=== PATIENT | female | born 1995 | race African-American/Black ===

== ENCOUNTER 2016-05-01 12:22 | Emergency (ER) | payer MEDICAID ==
[~2016-05-01] VITALS: Ht 175.3 cm; Wt 88.6 kg
--- NOTE | 2016-05-01 13:15 | PD ---
HPI Chief Complaint: Back/ Neck Pain or Injury Time Seen by Provider: 13:15 Travel History International Travel<30 days: No Contact w/Intl Traveler<30days: No Traveled to known affect area: No History of Present Illness HPI 20-year-old female presents to the emergency department for evaluation of low back pain and lower abdominal pain for 2-3 days. Patient describes it as intermittent sharp pain. Denies any aggravating or alleviating factors. States that she's had similar pain when she is on her menstrual cycle but that this pain little different. States her last menstrual cycle was 4 days ago, denies . States she has had vaginal discharge for the past 2-3 days as well. Denies any fever, chills, nausea, vomiting, diarrhea, constipation, burning with urination, painful urination. Denies any prior abdominal surgeries. The patient admits to being sexually active but reports that she uses protection. No other complaints. PFSH Past Medical History Anemia: Yes Diminished Hearing: No ?: Not LMP: 04/27/2016 Social History Alcohol Use: No Tobacco Use: Yes (OCC) Substance Use: No Allergies-Medications (Allergen,Severity, Reaction): Coded Allergies: No Known Allergies (Unverified , 05/01/16) Reported Meds & Prescriptions Reported Meds & Active Scripts Active No Active Prescriptions or Reported Medications Review of Systems Except as stated in HPI: all other systems reviewed are Neg Physical Exam Narrative GENERAL: Well-nourished and well-developed pleasant female patient in no acute distress who is nontoxic appearing. SKIN: Warm and dry. HEAD: Normocephalic and atraumatic. EYES: No injection, drainage, or hyphema noted. PERRLA. EOMI. ENT: No nasal drainage noted. Oropharynx is clear. NECK: Supple and the trachea is midline. CARDIOVASCULAR: Regular rate and rhythm. RESPIRATORY: Breath sounds are equal bilaterally with no accessory muscle use, wheezing, rhonchi, or crackles. GASTROINTESTINAL: Mild tenderness to palpation of pelvic region. Negative McBurney's point. Negative Martin sign. Abdomen is soft and nondistended. No rebound tenderness or guarding. GENITOURINARY: Normal external genitalia without lesions or erythema. Vaginal vault with thick brown discharge. Cervical os was closed without drainage. Mild cervical motion tenderness. Uterus nontender and nonenlarged. Bilateral adnexa nontender without masses. Performed in the presence of Skylar PAREDES. MUSCULOSKELETAL: No obvious deformities, swelling, cyanosis, or ecchymosis is present throughout the upper and lower extremities. Patient has full range of motion without any signs of neurovascular compromise. BACK: Negative CVA tenderness. Nontender without any obvious deformities, bony point tenderness, or crepitus noted throughout the thoracic and lumbar vertebrae. NEUROLOGICAL: Awake, alert, and oriented. Normal speech and gait. Cranial nerves are grossly intact. Data Data Last Documented VS Vital Signs Date Time Temp Pulse Resp B/P Pulse Ox O2 Delivery O2 Flow Rate FiO2 05/01/16 13:32 98.2 87 15 118/74 100 Room Air Orders Gc And Chlamydia Pcr (05/01/16 13:14) Wet Prep Profile (05/01/16 13:14) Urinalysis - C+S If Indicated (05/01/16 13:14) Ed Urine Pregnancytest Poc (05/01/16 13:14) Azithromycin (Zithromax) (05/01/16 14:00) Ceftriaxone Inj (Rocephin Inj) (05/01/16 14:00) Lidocaine 1% Inj (50 Ml) (Xylocaine 1% I (05/01/16 14:00) Labs Laboratory Tests Test 05/01/16 05/01/16 13:40 13:50 Urine Color YELLOW Urine Turbidity HAZY Urine pH 5.0 Urine Specific [place] 1.013 Urine Protein NEG mg/dL Urine Glucose (UA) NEG mg/dL Urine Ketones NEG mg/dL Urine Occult Blood MOD Urine Nitrite NEG Urine Bilirubin NEG Urine Urobilinogen LESS THAN 2.0 MG/DL Urine Leukocyte Esterase LARGE Urine RBC 8 /hpf Urine WBC 4 /hpf Urine Squamous Epithelial 9 /hpf Cells Urine Bacteria OCC /hpf Urine Hyaline Casts 1 /lpf Urine Mucus FEW /lpf Urine Yeast (Budding) OCC Microscopic Urinalysis Comment CULT NOT INDICATED Clue Cells (Wet Prep) NONE SEEN Vaginal Trichomonas (Wet Prep) NONE SEEN Vaginal Yeast (Wet Prep) PRESENT MDM Medical Decision Making Medical Screen Exam Complete: Yes Emergency Medical Condition: Yes Differential Diagnosis STI versus PID versus UTI versus ovarian cyst Narrative Course 20-year-old female presents to the emergency department for evaluation of pelvic pain and lower back pain for 3 days with vaginal discharge. Patient is afebrile, vital signs are stable. Abdominal examination is essentially benign. Patient appears very well overall. Pelvic examination reveals thick brown discharge and some mild cervical motion tenderness. We'll treat empirically with Rocephin and Zithromax for gonorrhea or chlamydia, patient is agreeable to this plan. Urinalysis shows moderate occult blood, large leukocyte esterase, 8 red blood cells, occasional bacteria, few mucus, occasional yeast. Culture not indicated , therefore reflex culture was ordered. Wet prep shows vaginal yeast. Gonorrhea and Chlamydia is pending. The patient has some bacteria and white blood cells in her urine and therefore we'll treat as UTI with Keflex. She has yeast as well and we'll give her Diflucan. Discussed supportive care and advised to follow-up with her PCP or the health department. Patient verbalizes understanding and agreement with treatment plan. Diagnosis Primary Impression: Vulvovaginal candidiasis Additional Impression: UTI (urinary tract infection) Qualified Code: N39.0 - Urinary tract infection with hematuria, site unspecified Referrals: Primary Care Physician Patient Instructions: General Instructions Additional Instructions: Take medications as prescribed with food and a full glass of water. Follow-up with your Primary Care Physician. Return to the ED for any acute worsening of symptoms. Med/Other Pt SpecificInfo: Prescription(s) given Scripts Fluconazole (Diflucan)150 Mg [id number] Mg PO ONCE #1 TAB Ref 0 Prov:Binta Barron MD 05/01/16 Cephalexin (Keflex)500 Mg [id number] Mg PO Q12H 7 Days Ref 0 Prov:Binta Barron MD 05/01/16 Disposition: 01 DISCHARGE HOME Condition: Stable Karen Chavez May 01, 2016 13:15
[2016-05-01 13:32] VITALS: BP 118/74; PULSE 87; RESP 15; TEMP 98.2; O2SAT 100
[2016-05-01] MEDS ORDERED: AZITHROMYCIN 250 MG TAB PO ONE (14:00)
[2016-05-01] MEDS ORDERED: cefTRIAXone 250 MG VIAL IM ONE (14:00)
[2016-05-01] MEDS ORDERED: LIDOCAINE HCL 1% 50 ML VIAL IM ONE (14:00)
[2016-05-01 14:13] LABS: BACTERIA, URINE OCC /hpf; BLOOD, URINE MOD (NEG); COMMENT (UR) CULT NOT INDICATED; CULTURE IF INDICATED CULT NOT INDICATED; GLUCOSE,URINE NEG (NEG); HYALINE CAST, URINE 1 /lpf (RARE); KETONE, URINE NEG (NEG); MUCUS URINE FEW /lpf (OCC); NITRITE,URINE NEG (NEG); SQUAMOUS EPITHELIAL CELL URINE 9 /hpf (0-5); URINE COLOR YELLOW (YELLW/STRAW)
[2016-05-01] MEDS ORDERED: DIFL150T PO (14:26)
[2016-05-01] MEDS ORDERED: CEPH-460 PO (14:26)
[2016-05-01 15:41] LABS: CHLAMYDIA PCR NOT DETECTED (NOT DETECT); NEISSERIA PCR NOT DETECTED (NOT DETECT)
== END 2016-05-01 14:49 | disposition home or self-care (01) ==
LOC: NEPA 12:22
DX: B37.3 Candidiasis of vulva and vagina (principal); N39.0 Urinary tract infection, site not specified; Z72.0 Tobacco use; Z86.2 Personal history of diseases of the blood and blood-forming organs and certain disorders involving the immune mechanism
CPT/HCPCS: 81001; 84703; 87086; 87210; 87491; 87591; 96372; 99284; J0696

== ENCOUNTER 2016-05-15 22:39 | Emergency (ER) | payer MEDICAID ==
[~2016-05-15] VITALS: Ht 175.3 cm; Wt 105.0 kg
[~2016-05-15 22:39] MED LIST: CEPH-460 PO; DIFL150T PO
[2016-05-15 22:42] VITALS: BP 124/69; PULSE 90; RESP 16; TEMP 98.2; O2SAT 99
[2016-05-16 00:34] LABS: BLOOD, URINE NEG (NEG); GLUCOSE,URINE NEG (NEG); KETONE, URINE NEG (NEG); MUCUS URINE FEW /lpf (OCC); NITRITE,URINE NEG (NEG); PH, URINE 5.5 (5.0-8.5); SQUAMOUS EPITHELIAL CELL URINE 2 /hpf (0-5); URINE COLOR YELLOW (YELLW/STRAW)
--- NOTE | 2016-05-16 00:57 | PD ---
HPI Chief Complaint: Abdominal Pain Time Seen by Provider: 23:50 Travel History International Travel<30 days: No Contact w/Intl Traveler<30days: No Traveled to known affect area: No History of Present Illness HPI 20-year-old female arrives to the ER complaining of low back pain and lower abdomen pain. It's been present for about 2 days. Initially the pain was in the lower abdomen only. She denies fever. She's had no nausea or vomiting. Similar prior episodes have occurred. She was diagnosed with vulvovaginal candidiasis and was treated for it. It seems as though symptoms did not improve much. Last menstruation was 3 weeks ago. She reports occasional vaginal discharge cloudy white EKG with no odor is 0. His past medical history of anemia. She has no surgical history. She has no allergies. She smokes cigarettes occasionally PFSH Past Medical History Anemia: Yes Diminished Hearing: No Tetanus Vaccination: Unknown Influenza Vaccination: No ?: Not LMP: 2 WKS AGO Past Surgical History Surgical History: No Previous Surgery Social History Alcohol Use: No Tobacco Use: Yes (OCC) Substance Use: No Allergies-Medications (Allergen,Severity, Reaction): Coded Allergies: No Known Allergies (Unverified , 05/15/16) Reported Meds & Prescriptions Reported Meds & Active Scripts Active Diflucan (Fluconazole) 150 Mg Tab 150 Mg PO ONCE Keflex (Cephalexin) 500 Mg Cap 500 Mg PO Q12H 7 Days Review of Systems Except as stated in HPI: all other systems reviewed are Neg General / Constitutional: No: Fever, Chills Genitourinary: Positive: Discharge, No: Vaginal Bleeding Physical Exam Narrative GENERAL: 20-year-old female pleasant no acute distress GENITOURINARY: There is white discharge along the vaginal mucosa. There is no CMT or adnexal mass or tenderness. Vulva is unremarkable. SKIN: Warm and dry. HEAD: Atraumatic. Normocephalic. EYES: Pupils equal and round. No scleral icterus. No injection or drainage. ENT: No nasal bleeding or discharge. Mucous membranes pink and moist. NECK: Trachea midline. No JVD. CARDIOVASCULAR: Regular rate and rhythm. No murmur appreciated. RESPIRATORY: No accessory muscle use. Clear to auscultation. Breath sounds equal bilaterally. GASTROINTESTINAL: Abdomen soft, non-tender, nondistended. Hepatic and splenic margins not palpable. MUSCULOSKELETAL: No obvious deformities. No clubbing. No cyanosis. No edema. NEUROLOGICAL: Awake and alert. No obvious cranial nerve deficits. Motor grossly within normal limits. Normal speech. PSYCHIATRIC: Appropriate mood and affect; insight and judgment normal. Data Data Last Documented VS Vital Signs Date Time Temp Pulse Resp B/P Pulse Ox O2 Delivery O2 Flow Rate FiO2 05/16/16 00:08 15 05/15/16 22:42 98.2 90 124/69 99 Room Air Orders Gc And Chlamydia Pcr (05/15/16 23:56) Wet Prep Profile (05/15/16 23:56) Ua Includes Microscopic (05/15/16 23:56) Ed Urine Pregnancytest Poc (05/15/16 23:56) Labs Laboratory Tests Test 05/16/16 05/16/16 00:10 00:15 Urine Color YELLOW Urine Turbidity CLEAR Urine pH 5.5 Urine Specific [place] 1.018 Urine Protein NEG mg/dL Urine Glucose (UA) NEG mg/dL Urine Ketones NEG mg/dL Urine Occult Blood NEG Urine Nitrite NEG Urine Bilirubin NEG Urine Urobilinogen LESS THAN 2.0 MG/DL Urine Leukocyte Esterase LARGE Urine RBC 4 /hpf Urine WBC 2 /hpf Urine Squamous Epithelial 2 /hpf Cells Urine Mucus FEW /lpf Clue Cells (Wet Prep) PRESENT Vaginal Trichomonas (Wet Prep) NONE SEEN Vaginal Yeast (Wet Prep) NONE SEEN MDM Medical Decision Making Medical Screen Exam Complete: Yes Emergency Medical Condition: Yes Medical Record Reviewed: Yes Differential Diagnosis IUP, UTI, ectopic , ov torsion, appendicitis, TOA, cervicitis, BV, Trichomoniasis, ov cyst, hernia, mittelschmerz, pain from menstruation Narrative Course Urine is negative Urinalysis could reflect a cystitis Wet prep shows bacterial vaginosis The patient will be sent home with Flagyl. Short course of Bactrim prescribed.. Evidently the patient suffered with similar episodes numerous times and quite frustrated. Referral to gynecology might be of some benefit. Diagnosis Primary Impression: UTI (urinary tract infection) Qualified Code: N30.00 - Acute cystitis without hematuria Additional Impression: Bacterial vaginosis Referrals: Linda Vital MD 2 days Additional Instructions: You have a choice when it comes to health care, and we are glad that you chose [facility]. Hopefully, we have met your expectations on today's visit. You are welcome to return to [facility] at any time, as we are committed to meeting the health care needs of our community. Med/Other Pt SpecificInfo: Prescription(s) given Scripts Metronidazole (Flagyl)500 Mg [id number] Mg PO BID 7 Days Ref 0 Prov:Mohan Jin MD 05/16/16 Sulfamethoxazole-Trimethoprim (Bactrim DS)800-160 Mg Tab1 Tab PO BID #6 TAB Ref 0 Prov:Mohan Jin MD 05/16/16 Disposition: 01 DISCHARGE HOME Condition: Stable Mohan Jin MD May 16, 2016 00:57
[2016-05-16] MEDS ORDERED: METR-1 PO (01:04)
[2016-05-16] MEDS ORDERED: BACT800T5 PO (01:04)
[2016-05-16] MEDS ORDERED: SULFAMETHOXAZOLE-TRIMETHOPRIM DS 800-160 MG TAB PO ONE (01:15)
[2016-05-16] MEDS ORDERED: metroNIDAZOLE 500 MG TAB PO ONE (01:15)
[2016-05-16 02:07] LABS: CHLAMYDIA PCR NOT DETECTED (NOT DETECT); NEISSERIA PCR NOT DETECTED (NOT DETECT)
== END 2016-05-16 01:35 | disposition home or self-care (01) ==
LOC: NEPC 22:39
DX: N39.0 Urinary tract infection, site not specified (principal); N76.0 Acute vaginitis; D64.9 Anemia, unspecified; Z72.0 Tobacco use
CPT/HCPCS: 81001; 84703; 87210; 87491; 87591; 99284

== ENCOUNTER 2016-06-16 10:33 | Emergency (ER) | payer MEDICAID ==
[~2016-06-16] VITALS: Ht 177.8 cm; Wt 107.0 kg
[2016-06-16 10:33] VITALS: BP 125/74; PULSE 74; RESP 16; TEMP 98.9; O2SAT 100
[~2016-06-16 10:33] MED LIST changes: +BACT800T5 PO; +METR-1 PO
--- NOTE | 2016-06-16 11:17 | PD ---
Physical Exam Date Seen by Provider: Jun 16, 2016 Time Seen by Provider: 11:16 Narrative 20 year old female presents to the emergency department for evaluation of lower abdominal cramps and low back pain that started this morning. She reports vaginal spotting for 4-5 days, no heavy bleeding. Patient does not believe she is . She currently rates pain 10/10. Vital signs reviewed. Patient awaiting bed placement. Data Data Last Documented VS Vital Signs Date Time Temp Pulse Resp B/P Pulse Ox O2 Delivery O2 Flow Rate FiO2 06/16/16 10:33 98.9 74 16 125/74 100 Room Air [facility] Supervised Visit with ISSA: Mone Enriquez Jun 16, 2016 11:17
--- NOTE | 2016-06-16 12:01 | PD ---
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 Patient has her menstrual cycle currently but states it's patient account representative than normal only saturating 2 pads per day, patient states she felt sort of nauseated this morning. She denies any vaginal discharge or odor. Her last sexual encounter was unprotected 4 weeks ago. She denies any fever, chills , chest pain, shortness of breath, vomiting, diarrhea, constipation. PFSH Past Medical History Anemia: Yes Diminished Hearing: No ?: Not Social History Alcohol Use: No Tobacco Use: Yes (OCC) Substance Use: No Allergies-Medications (Allergen,Severity, Reaction): Coded Allergies: No Known Allergies (Unverified , 06/16/16) Reported Meds & Prescriptions Reported Meds & Active Scripts Active No Active Prescriptions or Reported Medications Review of Systems Except as stated in HPI: all other systems reviewed are Neg General / Constitutional: No: Fever, Chills HENT: No: Headaches Cardiovascular: No: Chest Pain or Discomfort Respiratory: No: Shortness of Breath Gastrointestinal: Positive: Nausea, Abdominal Pain (cramping in suprapubic region) Genitourinary: Positive: Vaginal Bleeding, No: Dysuria, Flank Pain, Discharge Neurologic: No: Weakness, Dizziness Physical Exam Narrative GENERAL: Obese, well-developed, alert female. Resting comfortably in no acute distress. SKIN: Focused skin assessment warm/dry. HEAD: Atraumatic. Normocephalic. EYES: Pupils equal and round. No scleral icterus. No injection or drainage. ENT: No nasal bleeding or discharge. Mucous membranes pink and moist. NECK: Trachea midline. No JVD. CARDIOVASCULAR: Regular rate and rhythm. No murmur appreciated. RESPIRATORY: No accessory muscle use. Clear to auscultation. Breath sounds equal bilaterally. GASTROINTESTINAL: Abdomen soft, only tender to palpation in suprapubic region, nondistended. Hepatic and splenic margins not palpable. No guarding, no rebound , positive bowel sounds. MUSCULOSKELETAL: No obvious deformities. No clubbing. No cyanosis. No edema. NEUROLOGICAL: Awake and alert. No obvious cranial nerve deficits. Motor grossly within normal limits. Normal speech. PSYCHIATRIC: Appropriate mood and affect; insight and judgment normal. Data Data Last Documented VS Vital Signs Date Time Temp Pulse Resp B/P Pulse Ox O2 Delivery O2 Flow Rate FiO2 06/16/16 10:33 98.9 74 16 125/74 100 Room Air Orders Urinalysis - C+S If Indicated (06/16/16 11:52) Ed Urine Pregnancytest Poc (06/16/16 11:52) Ibuprofen (Motrin) (06/16/16 12:45) Labs Laboratory Tests Test 06/16/16 12:10 Urine Color YELLOW Urine Turbidity CLEAR Urine pH 7.0 Urine Specific [place] 1.023 Urine Protein TRACE mg/dL Urine Glucose (UA) NEG mg/dL Urine Ketones NEG mg/dL Urine Occult Blood SMALL Urine Nitrite NEG Urine Bilirubin NEG Urine Urobilinogen LESS THAN 2.0 MG/DL Urine Leukocyte Esterase NEG Urine RBC 54 /hpf Urine WBC 1 /hpf Urine Squamous Epithelial 2 /hpf Cells Urine Mucus MOD /lpf Microscopic Urinalysis Comment CULT NOT INDICATED MDM Medical Decision Making Medical Screen Exam Complete: Yes Emergency Medical Condition: Yes Interpretation(s) Vital Signs Date Time Temp Pulse Resp B/P Pulse Ox O2 Delivery O2 Flow Rate FiO2 06/16/16 10:33 98.9 74 16 125/74 100 Room Air Differential Diagnosis Menstrual cramps versus UTI versus STD versus ovarian cyst versus versus other Narrative Course Patient is [id number] female sent in to emergency department for evaluation of pelvic cramping that started today. Patient has her menstrual cycle currently. She denies any other complaints, she is observed sleeping comfortably. Her vital signs are stable. Abdominal exam is benign. Urinalysis is negative Urine is negative Patient has been evaluated with similar complaints approximately one month ago with a negative pelvic exam. She was given ibuprofen in the emergency department. Patient is encouraged to take ibuprofen as needed and as directed for pain. She is encouraged follow-up with a numerical tool programmer for routine health care. She is encouraged to return to emergency department for any new or worsening symptoms. Patient verbalizes understanding of these instructions. Patient is stable for discharge. Diagnosis Primary Impression: Menstrual cramps Referrals: Radiology Assistant Patient Instructions: General Instructions, Menstruation (ED) Additional Instructions: Follow-up with a numerical tool programmer Take ibuprofen as needed and as directed for menstrual cramping Return to emergency department for any new or worsening symptoms Med/Other Pt SpecificInfo: Prescription(s) given Scripts Ibuprofen 800 Mg Qpo657 Mg PO Q6HR PRN (PAIN) #40 TAB Ref 0 Prov:Cecile Garcia 06/16/16 Disposition: 01 DISCHARGE HOME Condition: Stable Cecile Garcia Jun 16, 2016 12:01
[2016-06-16 12:30] LABS: BLOOD, URINE SMALL (NEG); COMMENT (UR) CULT NOT INDICATED; CULTURE IF INDICATED CULT NOT INDICATED; GLUCOSE,URINE NEG (NEG); KETONE, URINE NEG (NEG); MUCUS URINE MOD /lpf (OCC); NITRITE,URINE NEG (NEG); SQUAMOUS EPITHELIAL CELL URINE 2 /hpf (0-5); URINE COLOR YELLOW (YELLW/STRAW)
[2016-06-16] MEDS ORDERED: IBUPROFEN 800 MG TAB PO ONE (12:45)
[2016-06-16] MEDS ORDERED: IBUP800T23 PO (13:05)
== END 2016-06-16 13:19 | disposition home or self-care (01) ==
LOC: NEPD 10:33
DX: N94.6 Dysmenorrhea, unspecified (principal); M54.5 Low back pain; R11.0 Nausea; D64.9 Anemia, unspecified; Z72.0 Tobacco use
CPT/HCPCS: 81001; 84703; 99283

== ENCOUNTER 2017-05-10 13:55 | Emergency (ER) | payer MEDICAID ==
[~2017-05-10 13:55] MED LIST changes: -BACT800T5 PO; -CEPH-460 PO; -DIFL150T PO; +IBUP1TAB7 PO; -METR-1 PO
[2017-05-10 14:02] VITALS: BP 126/60; PULSE 91; RESP 16; TEMP 99.2; O2SAT 100
[2017-05-10] MEDS ORDERED: ONDANSETRON HCL 4 MG/2 ML VIAL IVP ONE (15:30)
[2017-05-10] MEDS ORDERED: SODIUM CHLORIDE 0.9% FLUSH 10 ML FLUSH IVF PRN (15:30)
[2017-05-10] MEDS ORDERED: KETOROLAC TROMETHAMINE 30 MG/ML (IVP) VIAL IV PUSH ONE (15:30)
--- NOTE | 2017-05-10 15:36 | PD ---
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 Patient states her period started this morning. She states history of heavy clots in the past as well as history of chronic anemia since she was a young child. No history of sickle cell. Patient states history of ovarian cyst in the past. Patient denies need for transfusions in the past. Patient denies fever, chills, dysuria, or vaginal discharge other than bleeding. She is not currently sexually active. Pain is currently about a 7 out of 10. She is more concerned about possible anemia. Patient is allergic to Cheerios, banana, ipratropium, and mustard PFS Past Medical History Anemia: Yes Asthma: No Autoimmune Disease: No Blood Disorders: No Anxiety: No Depression: No Heart Rhythm Problems: No Cardiovascular Problems: No Cystic Fibrosis: No Diminished Hearing: No Hiatal Hernia: No Hypertension: No Musculoskeletal: No Neurologic: No Psychiatric: No Reproductive: No Respiratory: No Immunizations Current: No Migraines: No Seizures: No Sleep Apnea: No : 0 Para: 0 Miscarriage: 0 : 0 Past Surgical History Abdominal Surgery: No Ear Surgery: No Endocrine Surgery: No Eye Surgery: No Genitourinary Surgery: No Gynecologic Surgery: No Neurologic Surgery: No Oral Surgery: No Other Surgery: No Social History Alcohol Use: Yes Tobacco Use: Yes (2 CIGS) Substance Use: No Allergies-Medications (Allergen,Severity, Reaction): Coded Allergies: banana (Unverified Allergy, Mild, 04/14/17) itchy throat mustard (Unverified Allergy, Mild, itchy throat, 04/14/17) ipratropium (Unverified Allergy, Unknown, itchy throat, 04/14/17) No Known Allergies (Unverified Allergy, 06/16/16) Uncoded Allergies: Cheeries (Allergy, Unknown, itchy throat, 04/14/17) Reported Meds & Prescriptions Reported Meds & Active Scripts Active Zofran (Ondansetron HCl) 4 Mg Tab 4 Mg PO Q6HR PRN 12 Days Ibuprofen 800 Mg Tab 800 Mg PO Q8H PRN Ibuprofen 800 Mg Tab 800 Mg PO Q6HR PRN Review of Systems Except as stated in HPI: all other systems reviewed are Neg General / Constitutional: No: Fever Eyes: No: Visual changes HENT: Positive: Lightheadedness, No: Headaches, Vertigo, Sore Throat, Rhinitis , Rhinorrhea, Congestion, Nosebleed, Neck Stiffness, Neck Pain, Dental Difficulties, Earache Cardiovascular: No: Chest Pain or Discomfort Respiratory: No: Shortness of Breath Gastrointestinal: Positive: Nausea, No: Vomiting, Diarrhea, Abdominal Pain Genitourinary: Positive: Pelvic Pain (Cramping), Vaginal Bleeding (See history of present illness), No: Urgency, Frequency, Dysuria Musculoskeletal: No: Pain Skin: No Rash Neurologic: No: Weakness Psychiatric: No: Depression Endocrine: No: Polydipsia Hematologic/Lymphatic: No: Easy Bruising Physical Exam Narrative GENERAL: Patient appears in no acute distress SKIN: Warm and dry. Normal color. Normal turgor. HEAD: Atraumatic. Normocephalic. EYES: Pupils equal and round. No scleral icterus. No injection or drainage. ENT: No nasal bleeding or discharge. Mucous membranes pink and moist. TMs are clear. Pharynx is clear. Airways patent. NECK: Trachea midline. Supple nontender CARDIOVASCULAR: Regular rate and rhythm. No murmurs gallops or rubs. RESPIRATORY: No accessory muscle use. Clear to auscultation. Breath sounds equal bilaterally. GASTROINTESTINAL: Abdomen soft, mild suprapubic tenderness, nondistended. No point tenderness or guarding. No CVA tenderness hepatic and splenic margins not palpable. MUSCULOSKELETAL: Extremities without clubbing, cyanosis, or edema. No obvious deformities. NEUROLOGICAL: Awake and alert. No obvious cranial nerve deficits. Motor grossly within normal limits. Five out of 5 muscle strength in the arms and legs. Normal speech. PSYCHIATRIC: Appropriate mood and affect; insight and judgment normal. Data Data Last Documented VS Vital Signs Date Time Temp Pulse Resp B/P (MAP) Pulse Ox O2 Delivery O2 Flow Rate FiO2 05/10/17 15:48 16 05/10/17 14:02 99.2 91 126/60 (82) 100 Orders Orders Beta Hcg (Quant/Titer) (05/10/17 15:28) Complete Blood Count With Diff (05/10/17 15:28) Basic Metabolic Panel (Bmp) (05/10/17 15:28) Type And Screen (05/10/17 15:28) Urinalysis - C+S If Indicated (05/10/17 15:28) Iv Access Insert/Monitor (05/10/17 15:28) Ecg Monitoring (05/10/17 15:28) Sodium Chloride 0.9% Flush (Ns Flush) (05/10/17 15:30) Ondansetron Inj (Zofran Inj) (05/10/17 15:30) Ed Urine Pregnancytest Poc (05/10/17 15:28) Ketorolac Inj (Toradol Inj) (05/10/17 15:30) Labs Laboratory Tests Test 05/10/17 15:40 05/10/17 16:20 White Blood Count 11.6 TH/MM3 Red Blood Count 4.14 MIL/MM3 Hemoglobin 8.7 GM/DL Hematocrit 27.7 % Mean Corpuscular Volume 67.1 FL Mean Corpuscular Hemoglobin 21.0 PG Mean Corpuscular Hemoglobin Concent 31.3 % Red Cell Distribution Width 19.5 % Platelet Count 447 TH/MM3 Mean Platelet Volume 7.9 FL Neutrophils (%) (Auto) 75.7 % Lymphocytes (%) (Auto) 15.6 % Monocytes (%) (Auto) 6.5 % Eosinophils (%) (Auto) 1.5 % Basophils (%) (Auto) 0.7 % Neutrophils # (Auto) 8.8 TH/MM3 Lymphocytes # (Auto) 1.8 TH/MM3 Monocytes # (Auto) 0.8 TH/MM3 Eosinophils # (Auto) 0.2 TH/MM3 Basophils # (Auto) 0.1 TH/MM3 CBC Comment DIFF FINAL Differential Comment Blood Urea Nitrogen 10 MG/DL Creatinine 0.73 MG/DL Random Glucose 90 MG/DL Calcium Level 9.4 MG/DL Sodium Level 138 MEQ/L Potassium Level 3.9 MEQ/L Chloride Level 105 MEQ/L Carbon Dioxide Level 25.2 MEQ/L Anion Gap 8 MEQ/L Estimat Glomerular Filtration Rate 123 ML/MIN Human Chorionic Gonadotropin, Quant LESS THAN 1 MIU/ML Urine Color YELLOW Urine Turbidity CLEAR Urine pH 6.5 Urine Specific [place] 1.032 Urine Protein 30 mg/dL Urine Glucose (UA) NEG mg/dL Urine Ketones NEG mg/dL Urine Occult Blood MOD Urine Nitrite NEG Urine Bilirubin NEG Urine Urobilinogen 2.0 MG/DL Urine Leukocyte Esterase NEG Urine RBC /hpf Urine WBC LESS THAN 1 /hpf Urine Squamous Epithelial Cells 1 /hpf Urine Mucus MANY /lpf Microscopic Urinalysis Comment CULT NOT INDICATED MDM Medical Decision Making Medical Screen Exam Complete: Yes Emergency Medical Condition: Yes Medical Record Reviewed: Yes Differential Diagnosis Menorrhagia. Cramps associated with menstruation. Ovarian cyst. Narrative Course Patient appears medically stable at time of exam. IV access is obtained and labs are ordered including CBC, BMP, serum hCG. Urinalysis, and urine . Patient is given Zofran 4 mg IV as well as 30 milligrams Toradol IV. CBC shows slight leukocytosis of 11.6, with a hemoglobin of 8.7, and hematocrit of 27.7. CMP is unremarkable. Urinalysis is normal. Urine is negative. Patient feels improved after the above treatment. Patient is felt stable for discharge home with diagnosis of menorrhagia with mild anemia. Patient was treated with ibuprofen 800 mg 3 times daily with food #30. Patient also given Zofran 4 mg every 6 hours as needed nausea #12 Patient is recommended to follow with the health department or sheet metal lay out worker as discussed. Patient to return if bleeding worsens, or other symptoms worsen as well. 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 Patient Instructions: General Instructions, Menorrhagia (ED) Additional Instructions: CBC shows slight leukocytosis of 11.6, with a hemoglobin of 8.7, and hematocrit of 27.7. CMP is unremarkable. Urinalysis is normal. Urine is negative. Patient feels improved after the above treatment. Patient is felt stable for discharge home with diagnosis of menorrhagia with mild anemia. Patient was treated with ibuprofen 800 mg 3 times daily with food #30. Patient also given Zofran 4 mg every 6 hours as needed nausea #12 Patient is recommended to follow with the health department or sheet metal lay out worker as discussed. Patient to return if bleeding worsens, or other symptoms worsen as well. Med/Other Pt SpecificInfo: Prescription(s) given Scripts Ondansetron (Zofran) 4 Mg Tab 4 MG PO Q6HR Y for NAUSEA OR VOMITING for 12 Days, TAB 0 Refills Prov: Frank Delgado MD 05/10/17 Ibuprofen (Ibuprofen) 800 Mg Tab 800 MG PO Q8H Y for Pain/Inflammation, #30 TAB 0 Refills Prov: Frank Delgado MD 05/10/17 Disposition: 01 DISCHARGE HOME Condition: Stable Yunier Aaron May 10, 2017 15:36
[2017-05-10 16:26] LABS: AUTOMATED NEUTROPHIL # 8.8 TH/MM3 (1.8-7.7); BASOPHIL # 0.1 TH/MM3 (0-0.2); BASOPHIL % 0.7 % (0.0-2.0); EOSINOPHIL # 0.2 TH/MM3 (0-0.4); EOSINOPHIL % 1.5 % (0.0-4.0); HEMATOCRIT 27.7 % (35.0-46.0); HEMOGLOBIN 8.7 GM/DL (11.6-15.3); LYMPH % 15.6 % (9.0-44.0); LYMPHOCYTE # 1.8 TH/MM3 (1.0-4.8); MEAN CELL VOLUME 67.1 FL (80.0-100.0); MEAN CORPUSCULAR HGB CONC 31.3 % (32.0-36.0); MEAN PLATELET VOLUME 7.9 FL (7.0-11.0); MONO % 6.5 % (0.0-8.0); MONOCYTE # 0.8 TH/MM3 (0-0.9); NEUT % 75.7 % (16.0-70.0); PLATELET COUNT 447 TH/MM3 (150-450); RED BLOOD COUNT 4.14 MIL/MM3 (4.00-5.30); RED CELL DISTRIBUTION WIDTH 19.5 % (11.6-17.2); WHITE BLOOD COUNT 11.6 TH/MM3 (4.0-11.0)
[2017-05-10 16:33] LABS: BICARBONATE 25.2 MEQ/L (21.0-32.0); BLOOD UREA NITROGEN 10 MG/DL (7-18); CALCIUM 9.4 MG/DL (8.5-10.1); CHLORIDE 105 MEQ/L (98-107); CREATININE 0.73 MG/DL (0.50-1.00); GLOMERULAR FILTRATION RATE 123 ML/MIN (>89); GLUCOSE,RANDOM 90 MG/DL (74-106); SODIUM (NA) 138 MEQ/L (136-145)
[2017-05-10 17:29] LABS: BILIRUBIN, URINE NEG (NEG); BLOOD, URINE MOD (NEG); GLUCOSE,URINE NEG (NEG); KETONE, URINE NEG (NEG); MUCUS URINE MANY /lpf (OCC); NITRITE,URINE NEG (NEG); PH, URINE 6.5 (5.0-8.5); SQUAMOUS EPITHELIAL CELL URINE 1 /hpf (0-5); URINE COLOR YELLOW (YELLW/STRAW); URINE LEUKOCYTE ESTERASE NEG (NEG)
[2017-05-10] MEDS ORDERED: IBUP1TAB7 PO (17:56)
[2017-05-10] MEDS ORDERED: ZOFR4TAB PO (17:56)
== END 2017-05-10 18:22 | disposition home or self-care (01) ==
LOC: NEPD 13:55
DX: N92.0 Excessive and frequent menstruation with regular cycle (principal); D64.9 Anemia, unspecified; D72.829 Elevated white blood cell count, unspecified; R42 Dizziness and giddiness; R11.0 Nausea; R53.1 Weakness; F17.210 Nicotine dependence, cigarettes, uncomplicated
CPT/HCPCS: 80048; 81001; 84702; 84703; 85025; 86850; 86900; 86901; 96374; 96375; 99284; J1885; J2405

== ENCOUNTER 2017-08-14 19:15 | Emergency (ER) | payer MEDICAID ==
[~2017-08-14] VITALS: Ht 175.3 cm; Wt 106.0 kg
[~2017-08-14 19:15] MED LIST changes: +ZOFR4TAB PO
[2017-08-14 19:24] VITALS: BP 130/61; PULSE 76; RESP 18; TEMP 98.5; O2SAT 100
[2017-08-14] MEDS ORDERED: IRONTAB5 (19:28)
--- NOTE | 2017-08-14 19:56 | PD ---
HPI Chief Complaint: Skin Problem Time Seen by Provider: 19:33 Travel History International Travel<30 days: No Contact w/Intl Traveler<30days: No Traveled to known affect area: No History of Present Illness HPI 21-year-old female presents to the emergency department with complaint of tingling sensation and multiple little bumps that she noticed on her lips at approximately 4 or 5:00 this evening while she was at work. Reports a cluster of bumps to her right upper lip and a tingling sensation, prominently in the area. Says she has been using Carmex for many, many years and does not know if the chromics caused this. Denies new foods, lotions, soaps, detergents, medications, environmental exposures. Denies airway edema, tongue edema. Denies difficulty breathing or shortness of breath. Denies the bumps are itchy or painful. Denies swelling of her lips. Denies history of cold sores. Has not taken any medication or try any treatments to alleviate her symptoms. No known aggravating or relieving factors. Symptoms are mild in severity. Allergies as listed on the chart. No known allergies. No primary care provider. Denies significant past medical history. Has no other medical complaints. No other modifying factors or associated signs and symptoms. PFSH Past Medical History Anemia: Yes Asthma: No Autoimmune Disease: No Blood Disorders: No Anxiety: No Depression: No Heart Rhythm Problems: No Cardiovascular Problems: No Cystic Fibrosis: No Diminished Hearing: No Hiatal Hernia: No Hypertension: No Musculoskeletal: No Neurologic: No Psychiatric: No Reproductive: No Respiratory: No Immunizations Current: No Migraines: No Seizures: No Sleep Apnea: No ?: Unknown LMP: 07/27/17 : 0 Para: 0 Miscarriage: 0 : 0 Past Surgical History Abdominal Surgery: No Ear Surgery: No Endocrine Surgery: No Eye Surgery: No Genitourinary Surgery: No Gynecologic Surgery: No Neurologic Surgery: No Oral Surgery: No Other Surgery: No Social History Alcohol Use: Yes Tobacco Use: Yes (2 CIGS) Substance Use: No Allergies-Medications (Allergen,Severity, Reaction): Coded Allergies: snell (Verified Allergy, Severe, SWELLING, 08/14/17) peanut (Verified Allergy, Severe, SWELLING, 08/14/17) banana (Unverified Allergy, Mild, 08/14/17) itchy throat mustard (Unverified Allergy, Mild, itchy throat, 08/14/17) ipratropium (Unverified Allergy, Unknown, itchy throat, 08/14/17) Uncoded Allergies: Cheeries (Allergy, Unknown, itchy throat, 04/14/17) Reported Meds & Prescriptions Reported Meds & Active Scripts Active Reported [Iron] Review of Systems Except as stated in HPI: all other systems reviewed are Neg Physical Exam Narrative GENERAL: Well-nourished, well-developed black female patient, in no acute distress; afebrile, nontoxic-appearing SKIN: Warm and dry. No rash. HEAD: Atraumatic. Normocephalic. EYES: Pupils equal and round. No scleral icterus. No injection or drainage. ENT: Mucosa pink and moist. No erythema or exudates. No uvular edema. No uvular , palatal, or tonsillar deviation. Airway patent. MOUTH: Mucous membranes moist, tongue appear normal; a cluster of small, flesh- colored bumps noted to the right upper lip. EARS: Bilateral pinnae and external canals appear within normal limits NECK: Trachea midline. No lymphadenopathy. CARDIOVASCULAR: Regular rate RESPIRATORY: No accessory muscle use. GASTROINTESTINAL: Rounded. MUSCULOSKELETAL: No obvious deformities. No clubbing. No cyanosis. No edema. NEUROLOGICAL: Awake and alert. Oriented 3. No obvious cranial nerve deficits. Motor grossly within normal limits. Normal speech. Moves all extremities. 5/5 strength to all extremities. PSYCHIATRIC: Appropriate mood and affect; insight and judgment normal. Data Data Last Documented VS Vital Signs Date Time Temp Pulse Resp B/P (MAP) Pulse Ox O2 Delivery O2 Flow Rate FiO2 08/14/17 19:24 98.5 76 18 130/61 (84) 100 Orders Orders Ed Discharge Order (08/14/17 19:56) [facility] Medical Decision Making Medical Screen Exam Complete: Yes Emergency Medical Condition: Yes Medical Record Reviewed: Yes Differential Diagnosis Cold sores, contact dermatitis, sun exposure, nonspecific rash or skin eruption Narrative Course 21-year-old female with a cluster of multiple, small, flesh-colored bumps noted to the right upper lip. They are not itchy or painful. Patient is in no acute distress. She has no airway edema, tongue edema or shortness of breath. No new exposures. I offered patient Benadryl and she declined. Instructed patient to stop using her Carmex to see if her symptoms will subside. Instructed patient to take Benadryl at home as directed and as needed for symptom management. Discussed cold sores. Instructed patient to follow up with primary care provider. Patient verbalizes understanding and agreement with treatment plan. Patient is medically cleared and stable for discharge. Discussed reasons to return to the emergency department. Patient agrees with treatment plan. The patients vital signs are stable and the patient is stable for outpatient follow-up and treatment. Patient discharged home, stable and in no acute distress. Diagnosis Primary Impression: Rash on lips Referrals: Electronics Lead Primary Care Physician Patient Instructions: Acute Rash (ED), Contact Dermatitis (ED), General Instructions Additional Instructions: Stop using Carmex to see if your symptoms subside Benadryl as directed and as needed for rash Follow-up primary care provider Follow-up with regional program manager Return to the emergency department immediately, particularly with symptoms as discussed Med/Other Pt SpecificInfo: No Change to Meds, No Meds Exist/No RX given Disposition: 01 DISCHARGE HOME Condition: Stable Karen Corral Aug 14, 2017 19:56
== END 2017-08-14 20:02 | disposition home or self-care (01) ==
LOC: NEPK 19:15
DX: R21 Rash and other nonspecific skin eruption (principal); Z72.0 Tobacco use
CPT/HCPCS: 99282

== ENCOUNTER 2017-08-29 17:43 | Emergency (ER) | payer MEDICAID ==
[~2017-08-29 17:43] MED LIST changes: -IBUP1TAB7 PO; +IRONTAB5; -ZOFR4TAB PO
[2017-08-29 18:05] VITALS: BP 128/60; PULSE 106; RESP 20; TEMP 98.6; O2SAT 99
--- NOTE | 2017-08-29 20:00 | PD ---
HPI Chief Complaint: Abdominal Pain Time Seen by Provider: 19:38 Travel History International Travel<30 days: No Contact w/Intl Traveler<30days: No Traveled to known affect area: No History of Present Illness HPI Patient comes in complaining of from a menstrual period of 8 days, and left adnexal area pain. Patient states that she has had these before but does not have an TECHNICAL OPERATIONS SPECIALIST to go see. She has been diagnosed with cyst ovarian in nature and irregular periods. Patient denies any aggravating factors, generally alleviated when she is on oral control pills. No associated risk factors such as fever, rash, chest pain, shortness of breath, flank pain, urgency/ frequency/hematuria, nausea, vomiting or diarrhea. PFSH Past Medical History Anemia: Yes Asthma: No Autoimmune Disease: No Blood Disorders: No Anxiety: No Depression: No Heart Rhythm Problems: No Cardiovascular Problems: No Cystic Fibrosis: No Diminished Hearing: No Hiatal Hernia: No Hypertension: No Musculoskeletal: No Neurologic: No Psychiatric: No Reproductive: No Respiratory: No Immunizations Current: No Migraines: No Seizures: No Sleep Apnea: No ?: Not LMP: NOW : 0 Para: 0 Miscarriage: 0 : 0 Past Surgical History Surgical History: No Previous Surgery Abdominal Surgery: No Ear Surgery: No Endocrine Surgery: No Eye Surgery: No Genitourinary Surgery: No Gynecologic Surgery: No Neurologic Surgery: No Oral Surgery: No Other Surgery: No Social History Alcohol Use: Yes Tobacco Use: Yes (2 CIGS) Substance Use: No Allergies-Medications (Allergen,Severity, Reaction): Coded Allergies: snell (Verified Allergy, Severe, SWELLING, 08/29/17) peanut (Verified Allergy, Severe, SWELLING, 08/29/17) banana (Unverified Allergy, Mild, 08/29/17) itchy throat mustard (Unverified Allergy, Mild, itchy throat, 08/29/17) ipratropium (Unverified Allergy, Unknown, itchy throat, 08/29/17) Uncoded Allergies: Cheeries (Allergy, Unknown, itchy throat, 04/14/17) Reported Meds & Prescriptions Reported Meds & Active Scripts Active Reported [Iron] Review of Systems General / Constitutional: No: Fever Eyes: No: Visual changes HENT: No: Headaches Cardiovascular: No: Chest Pain or Discomfort Respiratory: No: Shortness of Breath Gastrointestinal: No: Abdominal Pain Genitourinary: Positive: Vaginal Bleeding Musculoskeletal: No: Pain Skin: No Rash Neurologic: No: Weakness Psychiatric: No: Depression Endocrine: No: Polydipsia Hematologic/Lymphatic: No: Easy Bruising Physical Exam Narrative GENERAL: SKIN: Warm and dry. HEAD: Atraumatic. Normocephalic. EYES: Pupils equal and round. No scleral icterus. No injection or drainage. ENT: No nasal bleeding or discharge. Mucous membranes pink and moist. NECK: Trachea midline. No JVD. CARDIOVASCULAR: Regular rate and rhythm. RESPIRATORY: No accessory muscle use. Clear to auscultation. Breath sounds equal bilaterally. GASTROINTESTINAL: Abdomen soft, non-tender, nondistended, mild tenderness to percussion over the left adnexal region and suprapubic region. MUSCULOSKELETAL: Extremities without clubbing, cyanosis, or edema. No obvious deformities. NEUROLOGICAL: Awake and alert. No obvious cranial nerve deficits. Motor grossly within normal limits. Five out of 5 muscle strength in the arms and legs. Normal speech. PSYCHIATRIC: Appropriate mood and affect; insight and judgment normal. Data Data Last Documented VS Vital Signs Date Time Temp Pulse Resp B/P (MAP) Pulse Ox O2 Delivery O2 Flow Rate FiO2 08/29/17 18:05 98.6 106 20 128/60 (82) 99 Orders Orders Urinalysis - C+S If Indicated (08/29/17 20:01) Ed Urine Pregnancytest Poc (08/29/17 20:01) Urine Culture (08/29/17 20:25) Labs Laboratory Tests Test 08/29/17 20:25 Urine Color YELLOW Urine Turbidity HAZY Urine pH 5.0 Urine Specific [place] 1.030 Urine Protein 30 mg/dL Urine Glucose (UA) NEG mg/dL Urine Ketones TRACE mg/dL Urine Occult Blood LARGE Urine Nitrite NEG Urine Bilirubin NEG Urine Urobilinogen 2.0 mg/dL Urine Leukocyte Esterase SMALL Urine RBC /hpf Urine WBC 24 /hpf Urine Squamous Epithelial Cells 2 /hpf Urine Mucus FEW /lpf Urine Yeast (Budding) RARE Microscopic Urinalysis Comment CULTURE INDICATED MDM Medical Decision Making Medical Screen Exam Complete: Yes Emergency Medical Condition: Yes Medical Record Reviewed: Yes Differential Diagnosis UTI versus related diagnoses such as ectopic versus ovarian cyst versus dysfunctional uterine bleeding Narrative Course test negative UA consistent with a UTI Diagnosis Primary Impression: Left adnexal pain Additional Impressions: Dysfunctional uterine bleeding UTI Patient Instructions: Dysfunctional Uterine Bleeding (ED), General Instructions , Ovarian Cyst (ED) Scripts Norethindrone-Ethinyl Estradiol-Fe (Lo Loestrin Fe 03/14) 1-10 Mg-Mcg Tab 1 TAB PO DAILY for Control, #1 PACK 0 Refills Prov: Maverick Parker MD 08/29/17 Nitrofurantoin Monohydrate Macrocrystals (Macrobid) 100 Mg Capsule 100 MG PO BID for Infection for 10 Days, #20 CAP 0 Refills Prov: Maverick Parker MD 08/29/17 Disposition: 01 DISCHARGE HOME Condition: Stable Maverick Parker MD Aug 29, 2017 20:00
[2017-08-29 21:05] LABS: BILIRUBIN, URINE NEG (NEG); BLOOD, URINE LARGE (NEG); GLUCOSE,URINE NEG (NEG); KETONE, URINE TRACE mg/dL (NEG); MUCUS URINE FEW /lpf (OCC); NITRITE,URINE NEG (NEG); SQUAMOUS EPITHELIAL CELL URINE 2 /hpf (0-5); URINE COLOR YELLOW (YELLW/STRAW); URINE LEUKOCYTE ESTERASE SMALL (NEG)
[2017-08-29] MEDS ORDERED: LO LTAB PO (21:22)
[2017-08-29] MEDS ORDERED: MACR100C2 PO (21:22)
== END 2017-08-29 22:44 | disposition home or self-care (01) ==
LOC: NEPD 17:43
DX: N93.8 Other specified abnormal uterine and vaginal bleeding (principal); N39.0 Urinary tract infection, site not specified; B96.89 Other specified bacterial agents as the cause of diseases classified elsewhere; D64.9 Anemia, unspecified; Z72.0 Tobacco use
CPT/HCPCS: 81001; 84703; 87086; 99283